=== PATIENT | female | born 1975 ===

== ENCOUNTER 2021-06-02 04:51 | Emergency (ER) | payer BC ==
[~2021-06-02] VITALS: Ht 170.2 cm; Wt 72.6 kg
== END 2021-06-02 11:19 | disposition home or self-care (01) ==
LOC: ER 04:51
DX: R40.20 Unspecified coma (principal); F10.929 Alcohol use, unspecified with intoxication, unspecified; Z03.818 Encounter for observation for suspected exposure to other biological agents ruled out